=== PATIENT | female | born 1980 | race Caucasian/White ===

== ENCOUNTER 2016-12-21 14:22 | Emergency (ER) | payer OTHER ==
[2016-12-21 14:47] VITALS: BP 109/65
--- NOTE | 2016-12-21 16:49 | UC ---
Thai Yanez Janilya, scribed for Adenike Agarwal DO on 12/21/16 at 1457 . Skin Complaint HPI - HPI Summary HPI Summary: Patient is a 36 y/o female who came in to [facility] presenting w/ a gradual onset of constant infection area on L foot and ankle since 12/19/16. Severity is 8/10. Pt states she got a tattoo on her L ankle on Thursday. She noticed immediate swelling, which is abnormal for pt. Pt has had tattoos before, and has not had these Sx before. Elevation, sleeping, and ice alleviate the swelling. Pt states it is difficult and painful to stand or walk. Yesterday, pt states she also noticed erythema in the area, which seems to be spreading. She says the rash is going up her leg. Pt denies CP, SOB, abd pain, chills, fever. Pt has baseline GOMEZ and nausea before getting the tattoo. PMHx D&C - 1 miscarriage. pt is on an ocp. no fhx of blood clots. - History of Current Complaint Chief Complaint: UCSkin Time Seen by Provider: 12/21/16 14:41 Stated Complaint: SKIN COMPLAINT Hx Obtained From: Patient Hx Last Menstrual Period: 11/09/16 Onset/Duration: Gradual Onset, Lasting Days, Still Present Skin Exposure Onset/Duration: Days Ago Timing: Constant Onset Severity: Moderate Current Severity: Moderate Pain Intensity: 8 Pain Scale Used: 0-10 Numeric Location: Discrete, Other - left lower leg and foot Character: Swelling, Redness, Painful Aggravating: Nothing Alleviating: Nothing, Other - elevation, sleeping, and ice alleviate swelling Associated Signs & Symptoms: Positive: Tenderness. Negative: Nausea, Vomiting, Fever, Chills, Chest Pain - Allergy/Home Medications Allergies/Adverse Reactions: Allergies Allergy/AdvReac Type Severity Reaction Status Date / Time Adhesive Tape Allergy Severe Swelling Verified 12/21/16 15:53 Cefuroxime [From Ceftin] Allergy Severe Hives Verified 12/21/16 15:53 Hydrocodone Allergy Hives Verified 12/21/16 15:53 Oxycodone Allergy Hives Verified 12/21/16 15:53 Review of Systems Constitutional: Negative Skin: Rash, Other - erythema Eyes: Negative ENT: Negative Respiratory: Negative Cardiovascular: Negative Gastrointestinal: Other - nausea before the tattoo Genitourinary: Negative Motor: Negative Neurovascular: Negative Musculoskeletal: Calf Tenderness, Edema - L ankle and foot Neurological: Headache - baseline Psychological: Negative All Other Systems Reviewed And Are Negative: Yes PMH/Surg Hx/FS Hx/Imm Hx Previously Healthy: Yes Endocrine History Of: Denies: Diabetes, Thyroid Disease Cardiovascular History Of: Denies: Cardiac Disorders, Hypertension, Pacemaker/ICD Respiratory History Of: Denies: COPD, Asthma GI/ History Of: Denies: Ulcer, Renal Disease Neurological History Of: Reports: Migraine - last week had last one - Surgical History Surgical History: Yes Surgery Procedure, Year, and Place: D&C AFTER MISCARRIAGE-2004 [facility] [place],. RT SHOULDER ROTATOR CUFF REPAIR 01/2014 - Family History Known Family History: Positive: Cardiac Disease - [place] - grandfather Negative: Hypertension, Diabetes, Other - cancer - Social History Lives: With Family Alcohol Use: Occasionally Alcohol Amount: 1-2 GLASSES WINE PER WEEK Substance Use Type: None Smoking Status (MU): Never Smoked Tobacco - Immunization History Most Recent Influenza Vaccination: 5ft5in Most Recent Tetanus Shot: 180lb Physical Exam Triage Information Reviewed: Yes Appearance: Well-Appearing, No Pain Distress, Well-Nourished Vital Signs: Initial Vital Signs Temp 98.2 F 12/21/16 14:37 Resp 18 12/21/16 14:37 BP 109/65 12/21/16 14:37 Pulse Ox 98 12/21/16 14:37 Vital Signs Reviewed: Yes Eyes: Positive: Conjunctiva Clear. Negative: Discharge ENT: Positive: Hearing grossly normal. Negative: Muffled/hoarse voice Neck exam: Normal Neck: Positive: Supple Respiratory: Positive: Lungs clear, Normal breath sounds, No respiratory distress, No accessory muscle use Cardiovascular: Positive: RRR, No Murmur Musculoskeletal Exam: Normal Musculoskeletal: Positive: ROM Limited @ - d/t pain, Edema @ - asymmetrical swelling of L lower leg, Other: - positive Homans sign Neurological: Positive: Alert, Muscle Tone Normal Psychological Exam: Normal Psychological: Positive: Age Appropriate Behavior Skin Exam: Other - circumferential erythematous rash to the mid-calf and over the top of the foot Course/Dx - Differential Diagnoses - Skin Complaint Differential Diagnoses: Cellulitis, Other - blood clot, septic joint - Diagnoses Provider Diagnoses: r/o dvt - Physician Notification/Consults Discussed Patient Care With: Dr. Maher ([facility] physician) at 1511: agrees to examine pt upon arrival. Discharge - Discharge Plan Condition: Stable Disposition: TRANS HIGHER LVL OF CARE FAC Discharge Disposition Comment: [facility] for ultrasound of the L leg Referrals: Sangeeta Casey MD [Primary Care Provider] - The documentation as recorded by the Thai mai Janilya accurately reflects the service I personally performed and the decisions made by , Adenike Agarwal DO.
== END 2016-12-21 15:22 | disposition short-term general hospital (02) ==
LOC: UCEAST 14:22
DX: L53.9 Erythematous condition, unspecified (principal); M25.572 Pain in left ankle and joints of left foot; R60.0 Localized edema; Z88.1 Allergy status to other antibiotic agents; Z88.5 Allergy status to narcotic agent; Z91.048 Other nonmedicinal substance allergy status; G43.909 Migraine, unspecified, not intractable, without status migrainosus
CPT/HCPCS: 99212; G0463

== ENCOUNTER → 2016-12-21 15:39 | Emergency (ER) | payer OTHER ==
[~2016-12-21 15:39] MED LIST: Clindamycin 600 MG IVPREMIX(* 600 MG/50 ML SDV IV ONE; Clindamycin CAP* 150 MG PO ONE; Ibuprofen TAB* 600 MG PO ONE; NS 0.9% 1000 ML* 1,000 ML IV ONE
[2016-12-21 17:02] LABS: Hematocrit 43 % (35-47); Hemoglobin 14.3 g/dl (12.0-16.0); Mean Corpuscular HGB Conc 34 g/dl (31-36); Mean Corpuscular Hemoglobin 31 pg (27-31); Mean Corpuscular Volume 91 fL (80-97); Mean Platelet Volume 7 um3 (7.4-10.4); Red Cell Distribution Width 13 % (10.5-15); White Blood Count 8.5 10^3/ul (3.5-10.8)
[2016-12-21 17:17] LABS: Albumin 4.3 g/dL (3.2-5.2); BUN/Creatinine Ratio 12.6 (8-20); C Reactive Protein 5.21 mg/L (< 5.00); Calcium 9.2 mg/dL (8.6-10.3); EGFR African American 95.3 (>60); EGFR Non-African American 74.1 (>60); Globulin 2.9 g/dL (2-4); Potassium 3.9 mmol/L (3.5-5.0); Total Bilirubin 0.4 mg/dL (0.2-1.0); Total Protein 7.2 g/dL (6.4-8.9)
[2016-12-21 18:28] VITALS: BP 101/45
--- NOTE | 2016-12-21 18:48 | ED ---
I, Oh,Soohyun, scribed for Yanick Maher MD on 12/21/16 at 1620 . Skin Complaint - HPI Summary HPI Summary: This 36 y/o female presents to ED from Urgent Care for erythema and edema at dorsum of LLE foot since yesterday AM. Pt just got a tattoo done on left foot 2 days ago. Swelling and erythema was noted at dorsum and appeared to have spread toward ankle. Negative itching, chills or swelling around groin. Positive subjective fever at the affected skin area on LUE foot. A+D cream was applied without much relief. Ice didn't alleviate redness or swelling. Ambulation makes the pain worse. Pt is nonsmoker and nondrinker. Pt has had other tattoos before , but states that this is the first time she has had this kind of skin reaction. Plan of care involving bloodwork and abx treatment is discussed with patient. Pt is agreeable. - History of Current Complaint Chief Complaint: EDRashSkinAbscess Time Seen by Provider: 12/21/16 16:06 Stated Complaint: RASH, PAIN LEFT ANKLE Hx Obtained From: Patient, Medical Records Hx Last Menstrual Period: 11/09/16 Onset/Duration: Started Days Ago, Traumatic, Still Present Timing: Constant Pain Intensity: 8 Pain Scale Used: 0-10 Numeric Skin Location: Foot - LLE foot Aggravating Symptom(s): Other: - ambulation Alleviating Symptom(s): Nothing Associated Signs & Symptoms: Fever - Allergy/Home Medications Allergies/Adverse Reactions: Allergies Allergy/AdvReac Type Severity Reaction Status Date / Time Adhesive Tape Allergy Severe Swelling Verified 12/21/16 15:53 Cefuroxime [From Ceftin] Allergy Severe Hives Verified 12/21/16 15:53 Hydrocodone Allergy Hives Verified 12/21/16 15:53 Oxycodone Allergy Hives Verified 12/21/16 15:53 PMH/Surg Hx/FS Hx/Imm Hx Endocrine/Hematology History: Denies: Hx Diabetes, Hx Thyroid Disease Cardiovascular History: Denies: Hx Hypertension, Hx Pacemaker/ICD, Other Cardiovascular Problems/ Disorders Respiratory History: Denies: Hx Asthma, Hx Chronic Obstructive Pulmonary Disease (COPD), Other Respiratory Problems/Disorders GI History: Denies: Hx Ulcer, Other GI Disorders History: Denies: Hx Dialysis, Hx Renal Disease, Other Problems/Disorders Musculoskeletal History: Reports: Hx Orthopedic Injury - right shoulder, Other Musculoskeletal History Sensory History: Denies: Hx Contacts or Glasses, Hx Hearing Aid Opthamlomology History: Denies: Hx Contacts or Glasses Neurological History: Reports: Hx Migraine - last week had last one Psychiatric History: Denies: Hx Panic Disorder - Surgical History Surgery Procedure, Year, and Place: D&C AFTER MISCARRIAGE-2004 [facility] [place],. RT SHOULDER ROTATOR CUFF REPAIR 01/2014 Hx Anesthesia Reactions: Yes - SLOW TO WAKE UP Infectious Disease History: No Infectious Disease History: Denies: Hx Clostridium Difficile, Hx Hepatitis, Hx Human Immunodeficiency Virus (HIV), Hx of Known/Suspected MRSA, History Other Infectious Disease, Traveled Outside the [place] in Last 30 Days - Family History Known Family History: Negative: Cardiac Disease, Hypertension, Diabetes, Other - cancer - Social History Alcohol Use: Occasionally Alcohol Amount: 1-2 GLASSES WINE PER WEEK Substance Use Type: Reports: None Smoking Status (MU): Never Smoked Tobacco Review of Systems Positive: Fever Positive: Edema - dorsum of LLE foot Positive: Rash - dorsum of LLE foot All Other Systems Reviewed And Are Negative: Yes Physical Exam - Summary Physical Exam Summary: The patient is well-nourished in no acute distress and in no acute pain. The skin at LLE foot dorsum is noted with edema and erythema that is circumferential and goes up to mid calf. Mild petechiae. Negative sign of abscess HEENT: The head is normocephalic and atraumatic. The pupils are equal and reactive. The conjunctivae are clear and without drainage. Nares are patent and without drainage. Mouth reveals moist mucous membranes and the throat is without erythema and exudate. The external ears are intact. The ear canals are patent and without drainage. The tympanic membranes are intact. Neck is supple with full range of motion and non-tender. There are no carotid bruits. There is no neck vein distension. Respiratory: Chest is non-tender. Lungs are clear to auscultation and breath sounds are symmetrical and equal. Cardiovascular: Hear is regular rate and rhythm. There is no murmur or rub auscultated. There is no peripheral edema and pulses are symmetrical and equal. Abdomen: The abdomen is soft and non-tender. There are normal bowel sounds heard in all four quadrants and there is no organomegaly palpated. Musculoskeletal: There is no back pain noted. Extremities are non-tender with full range of motion. There is good capillary refill. There is no peripheral edema or calf tenderness elicited. NEGATIVE ENEIDA'S SIGN. Neurological: Patient is alert and oriented to person, place and time. The patient has symmetrical motor strength in all four extremities. Cranial nerves are grossly intact. Deep tendon reflexes are symmetrical and equal in all four extremities. Psychiatric: The patient has an appropriate affect and does not exhibit any anxiety or depression. Vital Signs On Initial Exam: Initial Vitals Temp Pulse Resp BP Pulse Ox 97.7 F 77 16 141/60 100 12/21/16 15:56 12/21/16 15:56 12/21/16 15:56 12/21/16 15:56 12/21/16 15:56 Diagnostics - Vital Signs Vital Signs Temp Pulse Resp BP Pulse Ox 12/21/16 15:56 97.7 F 77 16 141/60 100 - Laboratory Lab Results: Lab Results 12/21/16 12/21/16 12/21/16 Range/Units 16:50 16:50 16:50 WBC 8.5 (3.5-10.8) 10^3/ul RBC 4.70 (4.0-5.4) 10^6/ul Hgb 14.3 (12.0-16.0) g/dl Hct 43 (35-47) % MCV 91 (80-97) fL MCH 31 (27-31) pg MCHC 34 (31-36) g/dl RDW 13 (10.5-15) % Plt Count 263 (150-450) 10^3/ul MPV 7 L (7.4-10.4) um3 Neut % (Auto) 65.9 (38-83) % Lymph % (Auto) 24.7 L (25-47) % Young % (Auto) 7.0 (1-9) % Eos % (Auto) 1.6 (0-6) % Baso % (Auto) 0.8 (0-2) % Absolute Neuts (auto) 5.6 (1.5-7.7) 10^3/ul Absolute Lymphs (auto) 2.1 (1.0-4.8) 10^3/ul Absolute Monos (auto) 0.6 (0-0.8) 10^3/ul Absolute Eos (auto) 0.1 (0-0.6) 10^3/ul Absolute Basos (auto) 0.1 (0-0.2) 10^3/ul Absolute Nucleated RBC 0 10^3/ul Nucleated RBC % 0 INR (Anticoag Therapy) 0.94 (0.89-1.11) APTT 29.2 (26.0-36.3) seconds Sodium 136 (133-145) mmol/L Potassium 3.9 (3.5-5.0) mmol/L Chloride 101 (101-111) mmol/L Carbon Dioxide 30 (22-32) mmol/L Anion Gap 5 (2-11) mmol/L BUN 11 (6-24) mg/dL Creatinine 0.87 (0.51-0.95) mg/dL Est GFR ( Amer) 95.3 (>60) Est GFR (Non-Af Amer) 74.1 (>60) BUN/Creatinine Ratio 12.6 (8-20) Glucose 84 (70-100) mg/dL Lactic Acid (0.5-2.0) mmol/L Calcium 9.2 (8.6-10.3) mg/dL Total Bilirubin 0.40 (0.2-1.0) mg/dL AST 18 (13-39) U/L ALT 21 (7-52) U/L Alkaline Phosphatase 77 (34-104) U/L C-Reactive Protein 5.21 H (< 5.00) mg/L Total Protein 7.2 (6.4-8.9) g/dL Albumin 4.3 (3.2-5.2) g/dL Globulin 2.9 (2-4) g/dL Albumin/Globulin Ratio 1.5 (1-3) // Range/Units 16:50 WBC (3.5-10.8) 10^3/ul RBC (4.0-5.4) 10^6/ul Hgb (12.0-16.0) g/dl Hct (35-47) % MCV (80-97) fL MCH (27-31) pg MCHC (31-36) g/dl RDW (10.5-15) % Plt Count (150-450) 10^3/ul MPV (7.4-10.4) um3 Neut % (Auto) (38-83) % Lymph % (Auto) (25-47) % Young % (Auto) (1-9) % Eos % (Auto) (0-6) % Baso % (Auto) (0-2) % Absolute Neuts (auto) (1.5-7.7) 10^3/ul Absolute Lymphs (auto) (1.0-4.8) 10^3/ul Absolute Monos (auto) (0-0.8) 10^3/ul Absolute Eos (auto) (0-0.6) 10^3/ul Absolute Basos (auto) (0-0.2) 10^3/ul Absolute Nucleated RBC 10^3/ul Nucleated RBC % INR (Anticoag Therapy) (0.89-1.11) APTT (26.0-36.3) seconds Sodium (133-145) mmol/L Potassium (3.5-5.0) mmol/L Chloride (101-111) mmol/L Carbon Dioxide (22-32) mmol/L Anion Gap (2-11) mmol/L BUN (6-24) mg/dL Creatinine (0.51-0.95) mg/dL Est GFR ( Amer) (>60) Est GFR (Non-Af Amer) (>60) BUN/Creatinine Ratio (8-20) Glucose (70-100) mg/dL Lactic Acid 0.9 (0.5-2.0) mmol/L Calcium (8.6-10.3) mg/dL Total Bilirubin (0.2-1.0) mg/dL AST (13-39) U/L ALT (7-52) U/L Alkaline Phosphatase (34-104) U/L C-Reactive Protein (< 5.00) mg/L Total Protein (6.4-8.9) g/dL Albumin (3.2-5.2) g/dL Globulin (2-4) g/dL Albumin/Globulin Ratio (1-3) Result Diagrams: 12/21/16 16:50 12/21/16 16:50 Lab Statement: Any lab studies that have been ordered have been reviewed, and results considered in the medical decision making process. Re-Evaluation - Re-Evaluation First Eval Re-Evaluation Time: 17:29 Comment: Pt is updated with bloodwork results. Plan of care is discussed. Course/Dx - Course Assessment/Plan: This 36 y/o female presents to ED for acute erythema and edema at dorsum of LLE foot since yesterday AM. Pt has recently had tattoo done at that exact spot 2 days ago. Pain is worse with ambulation. Upon examination, erythema is noted circumferential and up to mid calf LLE. Mild patechiae was observed, so INR was ordered to rule out any etiologies involving blood clots. No sign of abscess noted. Blood work is wnl except for CRP of 5.21. INR is wnl, and blood clot is not clinically concerned. - Differential Diagnoses - Skin Complaint Differential Diagnoses: Abscess, Cellulitis - Diagnoses Provider Diagnoses: Cellulitis of left foot Discharge - Discharge Plan Condition: Stable Disposition: HOME Prescriptions: Clindamycin Cap(NF) [Cleocin 300 mg Cap(NF)] 300 mg PO Q6H #28 cap Patient Education Materials: Cellulitis (ED), Clindamycin (By mouth) Referrals: Sangeeta Casey MD [Primary Care Provider] - 2 Days Additional Instructions: Please take 2-3 tablets of tylenols a day as needed. Apply warm soak and keep your foot elevated. The documentation as recorded by the Karlos mai Soohyun accurately reflects the service I personally performed and the decisions made by me, Yanick Maher MD.
== END | disposition home or self-care (01) ==
LOC: ED 15:39
DX: L03.116 Cellulitis of left lower limb (principal); Z88.5 Allergy status to narcotic agent
CPT/HCPCS: 36415; 80053; 83605; 85025; 85610; 85730; 86140; 96360; 96374; 99283; A9270-GY

== ENCOUNTER 2016-12-30 14:40 | Emergency (ER) | payer OTHER ==
[2016-12-30 14:48] VITALS: BP 126/75
--- NOTE | 2016-12-30 15:20 | UC ---
Skin Complaint HPI - HPI Summary HPI Summary: tattoo left foot and ankle, has pain and swelling to foot and lower leg, she has completed one course of clindamycin---here just ordered a second course and she broken out in red patchy rash. In general her foot is still swollen but per the patient significantly better than when treatment began, n/m/c pulses intact distally - History of Current Complaint Chief Complaint: UCRash Time Seen by Provider: 12/30/16 14:59 Stated Complaint: RASH Hx Obtained From: Patient Hx Last Menstrual Period: 12/29/16 ?: No Onset/Duration: Gradual Onset, Lasting Days, Still Present - but is getting better Skin Exposure Onset/Duration: Days Ago Timing: Constant Onset Severity: Severe Current Severity: Mild Pain Intensity: 3 Pain Scale Used: 0-10 Numeric Location: Discrete - left foot and ankle Character: Swelling, Redness Aggravating: Nothing Alleviating: Nothing Associated Signs & Symptoms: Positive: Negative Related History: Other: - new tattoo - Allergy/Home Medications Allergies/Adverse Reactions: Allergies Allergy/AdvReac Type Severity Reaction Status Date / Time Adhesive Tape Allergy Severe Swelling Verified 12/21/16 15:53 Cefuroxime [From Ceftin] Allergy Severe Hives Verified 12/21/16 15:53 Hydrocodone Allergy Hives Verified 12/21/16 15:53 Oxycodone Allergy Hives Verified 12/21/16 15:53 Review of Systems Constitutional: Negative Skin: Other - erythema left lower leg with swelling around tattoo Eyes: Negative ENT: Negative Respiratory: Negative Cardiovascular: Negative Gastrointestinal: Negative Genitourinary: Negative Motor: Negative Neurovascular: Negative Musculoskeletal: Negative, Edema - left lower leg Neurological: Negative Psychological: Negative All Other Systems Reviewed And Are Negative: Yes PMH/Surg Hx/FS Hx/Imm Hx Previously Healthy: No Endocrine History Of: Denies: Diabetes, Thyroid Disease Cardiovascular History Of: Denies: Cardiac Disorders, Hypertension, Pacemaker/ICD Respiratory History Of: Denies: COPD, Asthma GI/ History Of: Denies: Ulcer, Renal Disease Neurological History Of: Reports: Migraine - last week had last one - Surgical History Surgical History: Yes Surgery Procedure, Year, and Place: D&C AFTER [place]ISCARRIAGE-[place] [facility] [place],. RT SHOULDER ROTATOR CUFF REPAIR 01/2014 - Family History Known Family History: Positive: Cardiac Disease - [place] - grandfather Negative: Hypertension, Diabetes, Other - cancer - Social History Occupation: Employed Full-time Lives: With Family Alcohol Use: Weekly Alcohol Amount: 1-2 GLASSES WINE PER WEEK Substance Use Type: None Smoking Status (MU): Never Smoked Tobacco - Immunization History Most Recent Influenza Vaccination: 5ft5in Most Recent Tetanus Shot: 180lb Physical Exam Triage Information Reviewed: Yes Appearance: Well-Appearing, No Pain Distress, Well-Nourished Vital Signs: Initial Vital Signs Temp 98.0 F 12/30/16 14:43 Pulse 74 12/30/16 14:43 Resp 18 12/30/16 14:43 BP 126/75 12/30/16 14:43 Pulse Ox 99 12/30/16 14:43 Vital Signs Reviewed: Yes Eye Exam: Normal Eyes: Positive: Conjunctiva Clear ENT Exam: Normal ENT: Positive: Normal ENT inspection, Hearing grossly normal, Pharynx normal, TMs normal. Negative: Nasal congestion, Nasal drainage, Tonsillar swelling, Tonsillar exudate, Trismus, Muffled/hoarse voice Dental Exam: Normal Neck exam: Normal Neck: Positive: Supple, Nontender, No Lymphadenopathy Respiratory Exam: Normal Respiratory: Positive: Chest non-tender, Lungs clear, Normal breath sounds, No respiratory distress, No accessory muscle use Cardiovascular Exam: Normal Cardiovascular: Positive: RRR, No Murmur, Pulses Normal, Brisk Capillary Refill Musculoskeletal Exam: Other Musculoskeletal: Positive: Strength Intact, ROM Intact, Edema @ - left lower leg (improving) Neurological Exam: Normal Neurological: Positive: Alert, Muscle Tone Normal Psychological Exam: Normal Course/Dx - Course Course Of Treatment: elevation, warm compress, change antibiodic to Bactrim, used A&D ointment only on tattoos follow with pcp - Differential Diagnoses - Skin Complaint Differential Diagnoses: Cellulitis, Contact Dermatitis, Impetigo, Local Allergic Reaction - Diagnoses Provider Diagnoses: Left lower extremity cellulitis (improving) Discharge - Discharge Plan Condition: Stable Disposition: HOME Prescriptions: Sulfamethox/Trimethoprim DS* [Bactrim DS 800/160 TAB*] 1 tab PO BID #20 tab predniSONE TAB* [Deltasone TAB*] 10 mg PO DAILY #20 tab Patient Education Materials: Cellulitis (ED), Antibiotic Medication Allergy (ED ) Referrals: Sangeeta Casey MD [Primary Care Provider] - If Needed
== END 2016-12-30 15:30 | disposition home or self-care (01) ==
LOC: UCEAST 14:40
DX: L03.116 Cellulitis of left lower limb (principal)
CPT/HCPCS: 99212; G0463

== ENCOUNTER 2017-07-11 17:49 | Emergency (ER) | payer OTHER ==
[2017-07-11 18:04] VITALS: BP 129/77
[2017-07-11] MEDS ORDERED: Albuterol HFA INHALER* 8 gm MDI INH ONE (18:16)
[2017-07-11] MEDS ORDERED: Benzonatate CAP* 100 MG PO ONE (18:18)
--- NOTE | 2017-07-11 18:19 | UC ---
Respiratory Complaint HPI - HPI Summary HPI Summary: Cough for 7 days and mother dx with pneumonia, no fevers, no body aches or SOB - History of Current Complaint Chief Complaint: UCRespiratory Stated Complaint: COUGH Time Seen by Provider: 07/11/17 18:09 Hx Obtained From: Patient Hx Last Menstrual Period: 05/2017 ?: No Onset/Duration: Gradual Onset, Lasting Days - 7, Still Present Timing: Constant Severity Initially: Mild Severity Currently: Mild Character: Cough: Nonproductive Aggravating Factors: Nothing Alleviating Factors: Nothing Associated Signs And Symptoms: Positive: URI - Allergies/Home Medications Allergies/Adverse Reactions: Allergies Allergy/AdvReac Type Severity Reaction Status Date / Time Adhesive Tape Allergy Severe Swelling Verified 07/11/17 18:00 Cefuroxime [From Ceftin] Allergy Severe Hives Verified 07/11/17 18:00 Clindamycin Allergy Rash Verified 07/11/17 18:00 Hydrocodone Allergy Hives Verified 07/11/17 18:00 Oxycodone Allergy Hives Verified 07/11/17 18:00 Sulfamethoxazole Allergy Rash Verified 07/11/17 18:00 w/Trimethoprim [From Bactrim] PMH/Surg Hx/FS Hx/Imm Hx Previously Healthy: No Cardiovascular History: Hypertension GI/ History: Gastroesophageal Reflux - Surgical History Surgical History: Yes Surgery Procedure, Year, and Place: D&C AFTER MISCARRIAGE-2004 [facility] [place],. RT SHOULDER ROTATOR CUFF REPAIR 01/2014 - Family History Known Family History: Positive: Cardiac Disease - [place] - grandfather Negative: Hypertension, Diabetes, Other - cancer - Social History Occupation: Employed Part-time Lives: With Family Alcohol Use: Occasionally Alcohol Amount: 2 drinks per week Substance Use Type: None Smoking Status (MU): Never Smoked Tobacco - Immunization History Most Recent Influenza Vaccination: 2016 Most Recent Tetanus Shot: unknown Review of Systems Constitutional: Negative Skin: Negative Eyes: Negative ENT: Negative Respiratory: Cough Cardiovascular: Negative Gastrointestinal: Negative Genitourinary: Negative Motor: Negative Neurovascular: Negative Musculoskeletal: Negative Neurological: Negative Psychological: Negative Is Patient Immunocompromised?: No All Other Systems Reviewed And Are Negative: Yes Physical Exam Triage Information Reviewed: Yes Appearance: Well-Appearing, No Pain Distress, Well-Nourished Vital Signs: Initial Vital Signs Temp 97.5 F 07/11/17 17:53 Pulse 83 07/11/17 17:53 Resp 16 07/11/17 17:53 BP 129/77 07/11/17 17:53 Pulse Ox 99 07/11/17 17:53 Vital Signs Reviewed: Yes Eye Exam: Normal Eyes: Positive: Conjunctiva Clear ENT Exam: Normal ENT: Positive: Normal ENT inspection, Hearing grossly normal, Pharynx normal, TMs normal, Uvula midline. Negative: Nasal congestion, Nasal drainage, Tonsillar swelling, Tonsillar exudate, Trismus, Muffled voice, Hoarse voice, Dental tenderness, Sinus tenderness Dental Exam: Normal Neck exam: Normal Neck: Positive: Supple, Nontender, No Lymphadenopathy Respiratory Exam: Normal Respiratory: Positive: Chest non-tender, Lungs clear, Normal breath sounds, No respiratory distress, No accessory muscle use Cardiovascular Exam: Normal Cardiovascular: Positive: RRR, No Murmur, Pulses Normal, Brisk Capillary Refill Musculoskeletal Exam: Normal Musculoskeletal: Positive: Strength Intact, ROM Intact, No Edema Neurological Exam: Normal Neurological: Positive: Alert, Muscle Tone Normal Psychological Exam: Normal Skin Exam: Normal UC Diagnostic Evaluation - Laboratory O2 Sat by Pulse Oximetry: 99 Respiratory Course/Dx - Course Course Of Treatment: Albuterol, tessalon, increase fluids if fails to resolve in 3-5 days start antibiodics follow with pcp - Differential Dx/Diagnosis Provider Diagnoses: Acute cough Discharge - Discharge Plan Condition: Stable Disposition: HOME Prescriptions: Azithromycin TAB* [Zithromax TAB (Z-JOSE JUAN) 250 mg #6 tabs] 2 tab PO .TODAY, THEN 1 DAILY #1 jose juan Benzonatate CAP* [Tessalon 100 MG CAP*] 100 mg PO TID PRN #30 cap PRN Reason: cough Patient Education Materials: Bronchospasm (ED), Acute Cough (ED), Safe Use of Cough and Cold Medicines (ED) Referrals: Sangeeta Casey MD [Primary Care Provider] - If Needed
== END 2017-07-11 18:38 | disposition home or self-care (01) ==
LOC: UCEAST 17:49
DX: R05 Cough (principal); Z72.89 Other problems related to lifestyle
CPT/HCPCS: 99212; A9270-GY; G0463

== ENCOUNTER 2017-10-21 19:46 | Emergency (ER) | payer OTHER ==
[2017-10-21 20:13] VITALS: BP 109/76
--- NOTE | 2017-10-21 20:26 | UC ---
Throat Pain/Nasal Bandar HPI - HPI Summary HPI Summary: Pt presents with a sore throat and headache since yesterday. She tells me that she has two children who have been diagnosed with strep and she thinks she may have it. Has not taken anything OTC for her symptoms. Denies fever, chills, cough, SOB, chest pain, or dizziness. - History of Current Complaint Chief Complaint: UCRespiratory Stated Complaint: HEADACHE, SORE THROAT Time Seen by Provider: 10/21/17 20:26 Hx Obtained From: Patient Hx Last Menstrual Period: 10/11/17 Onset/Duration: Gradual Onset Severity: Mild Pain Intensity: 4 Pain Scale Used: 0-10 Numeric - Allergies/Home Medications Allergies/Adverse Reactions: Allergies Allergy/AdvReac Type Severity Reaction Status Date / Time cefuroxime [From Ceftin] Allergy Severe Hives Verified 10/21/17 20:14 clindamycin Allergy Severe Rash Verified 10/21/17 20:14 hydrocodone Allergy Severe Hives Verified 10/21/17 20:14 oxycodone Allergy Severe Hives Verified 10/21/17 20:14 Sulfa (Sulfonamide Allergy Severe Hives Verified 10/21/17 20:15 Antibiotics) adhesive tape Allergy SWELLING, Verified 10/21/17 20:14 HIVES PMH/Surg Hx/FS Hx/Imm Hx Previously Healthy: Yes Cardiovascular History: Hypertension GI/ History: Gastroesophageal Reflux - Surgical History Surgical History: Yes Surgery Procedure, Year, and Place: D&C AFTER MISCARRIAGE-2004 [facility] [place],. RT SHOULDER ROTATOR CUFF REPAIR 01/2014 - Family History Known Family History: Positive: Cardiac Disease - [place] - grandfather Negative: Hypertension, Diabetes, Other - cancer - Social History Occupation: Employed Full-time Lives: With Family Alcohol Use: Occasionally Alcohol Amount: 1 drink per week Substance Use Type: None Smoking Status (MU): Never Smoked Tobacco - Immunization History Most Recent Influenza Vaccination: 2016 Most Recent Tetanus Shot: unknown Review of Systems Constitutional: Negative Skin: Negative Eyes: Negative ENT: Sore Throat Respiratory: Negative Cardiovascular: Negative Musculoskeletal: Negative Neurological: Headache Psychological: Negative All Other Systems Reviewed And Are Negative: Yes Physical Exam - Summary Physical Exam Summary: GENERAL: NAD. WDWN. No pain distress. SKIN: No rashes, sores, ulcers, masses, lesions. HEENT: Head: AT/NC Eyes: Conjunctiva clear without inflammation or discharge. Ears: Hearing grossly normal. TMs intact, no bulging, erythema, or edema. Nose: Nasal mucosa pink and moist. NTTP maxillary and frontal sinus. Throat: Posterior oropharynx without erythema. 2+ tonsillar enlargement. No exudates. Uvula midline. No hoarse voice or muffled voice. NECK: Supple. Nontender. No lymphadenopathy. CHEST: CTAB. No r/r/w. No accessory muscle use. Breathing comfortably and in no distress. CV: RRR. Without m/r/g. Pulses intact. Brisk cap refill. NEURO: Alert. CN II-XII grossly intact. PSYCH: Age appropriate behavior. Triage Information Reviewed: Yes Vital Signs: Initial Vital Signs Temp 98.1 F 10/21/17 20:10 Pulse 83 10/21/17 20:10 Resp 16 10/21/17 20:10 BP 109/76 10/21/17 20:10 Pulse Ox 100 10/21/17 20:10 Throat Pain/Nasal Course/Dx - Course Course Of Treatment: POC strep negative. Suspect viral pharyngitis. Advised rest , fluids, and ibuprofen for fevers/discomfort. - Differential Dx/Diagnosis Provider Diagnoses: Pharyngitis Discharge - Discharge Plan Condition: Stable Disposition: HOME Patient Education Materials: Pharyngitis (ED) Referrals: Sangeeta Casey MD [Primary Care Provider] - Additional Instructions: If you develop a fever, shortness of breath, chest pain, new or worsening symptoms - please call your PCP or go to the ED. 1) May take tylenol or ibuprofen for any fevers or discomfort.
== END 2017-10-21 20:53 | disposition home or self-care (01) ==
LOC: UCEAST 19:46
DX: J02.9 Acute pharyngitis, unspecified (principal); Z20.89 Contact with and (suspected) exposure to other communicable diseases; Z88.1 Allergy status to other antibiotic agents; Z88.8 Allergy status to other drugs, medicaments and biological substances; Z91.048 Other nonmedicinal substance allergy status
CPT/HCPCS: 87651; 99211; G0463

== ENCOUNTER 2018-06-04 17:03 | Emergency (ER) | payer OTHER ==
[2018-06-04 17:22] VITALS: BP 124/78
--- NOTE | 2018-06-04 17:56 | RAD ---
HISTORY: pain, lateral right knee pain COMPARISONS: None VIEWS: 4 , Frontal, lateral, axial, and oblique views of the right knee FINDINGS: BONE DENSITY: Normal. BONES: There is no displaced fracture. JOINTS: There is no arthropathy. There is no suprapatellar joint effusion or lipohemarthrosis. ALIGNMENT: There is no dislocation. SOFT TISSUES: Unremarkable. OTHER FINDINGS: None. IMPRESSION: NO ACUTE OSSEOUS INJURY. IF SYMPTOMS PERSIST, RECOMMEND REPEAT IMAGING.
--- NOTE | 2018-06-04 18:05 | UC ---
Lower Extremity/Ankle HPI - HPI Summary HPI Summary: This patient is a 38 year old F presenting to [facility] with a chief complaint of R knee pain since earlier today at 1140. 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 She fell on her R knee and since then have been having pain. The patient rates the pain 8 /10 in severity. Symptoms aggravated by nothing. Symptoms alleviated by nothing. Patient denies neck, head, and hip trauma, difficulty ambulating, and LOC. - History of Current Complaint Chief Complaint: UCLowerExtremity Stated Complaint: KNEE INJURY Time Seen by Provider: 06/04/18 17:26 Hx Obtained From: Patient Hx Last Menstrual Period: [id number] Onset/Duration: Sudden Onset, Lasting Hours, Still Present Severity Initially: Severe Severity Currently: Severe Pain Intensity: 8 Pain Scale Used: 0-10 Numeric Aggravating Factor(s): Nothing Alleviating Factor(s): Nothing Able to Bear Weight: Yes - able to ambulate - Allergies/Home Medications Allergies/Adverse Reactions: Allergies Allergy/AdvReac Type Severity Reaction Status Date / Time cefuroxime [From Ceftin] Allergy Severe Hives Verified 06/04/18 17:23 clindamycin Allergy Severe Rash Verified 06/04/18 17:23 hydrocodone Allergy Severe Hives Verified 06/04/18 17:23 oxycodone Allergy Severe Hives Verified 06/04/18 17:23 Sulfa (Sulfonamide Allergy Severe Hives Verified 06/04/18 17:23 Antibiotics) adhesive tape Allergy SWELLING, Verified 06/04/18 17:23 HIVES PMH/Surg Hx/FS Hx/Imm Hx Endocrine History: Other Other Endocrine History: No DM Cardiovascular History: Other Other Cardiovascular History: No HTN - Surgical History Surgical History: Yes Surgery Procedure, Year, and Place: D&C AFTER MISCARRIAGE-2004 [facility] [place],. RT SHOULDER ROTATOR CUFF REPAIR 01/2014 - Family History Known Family History: Positive: Cardiac Disease - [place] - grandfather Negative: Hypertension, Diabetes, Other - cancer - Social History Alcohol Use: Weekly Alcohol Amount: 2 drinks per week Substance Use Type: None Smoking Status (MU): Never Smoked Tobacco - Immunization History Most Recent Influenza Vaccination: 2016 Most Recent Tetanus Shot: unknown Review of Systems Musculoskeletal: Other: - R knee pain; denies head trauma, neck trauma, and hip trauma Neurological: Other - denies LOC All Other Systems Reviewed And Are Negative: Yes Physical Exam - Summary Physical Exam Summary: VITAL SIGNS: Reviewed. GENERAL: Patient is a well-developed and nourished FEMALE who is lying comfortable in the stretcher. Patient is not in any acute respiratory distress. HEAD AND FACE: Normocephalic EYES: PERRLA, EOMI x 2. EARS: Hearing grossly intact. MOUTH: Oropharynx within normal limits. NECK: Supple, trachea is midline, no adenopathy, no JVD, no carotid bruit. CHEST: Symmetric, no tenderness at palpation LUNGS: Clear to auscultation bilaterally. No wheezing or crackles. CVS: Regular rate and rhythm, S1 and S2 present, no murmurs or gallops appreciated. ABDOMEN: Soft, non-tender. Bowel sounds are normal. No abdominal abnormal pulsations. EXTREMITIES: Full ROM in all major joints, no edema, no cyanosis or clubbing. Slight bruising of the anterior aspect of the R patella. NEURO: Alert and oriented x 3. No acute neurological deficits. Speech is normal and follows commands. SKIN: Dry and warm. Slight bruising of the anterior aspect of the R patella. Triage Information Reviewed: Yes Vital Signs: Initial Vital Signs Temp 98.0 F 06/04/18 17:14 Pulse 82 06/04/18 17:14 Resp 16 06/04/18 17:14 BP 124/78 06/04/18 17:14 Pulse Ox 100 06/04/18 17:14 Vital Signs Reviewed: Yes Diagnostics - Radiology R knee XR Radiology Interpretation Completed By: Radiologist - NO ACUTE OSSEOUS INJURY. IF SYMPTOMS PERSIST, RECOMMEND REPEAT IMAGING. Dr. Petersen has reviewed this radiology report. Lower Extremity Course/Dx - Course Course Of Treatment: Patient is a 58-year-old female who presents to the urgent care with chief complaint of having right knee pain. The patient reports that she's had an accidental fall and since then she is having pain. The patient is able to ambulate and bear weight. Physical exam doesn't show any deformity, hematomas, has a slight bruising in the anterior aspect of the patella, she has full range of motion of the knee, and did draw test is negative. X-ray of the knee negative for acute fracture dislocation. I discussed the findings and test results with the patient the need to follow-up with her primary care physician. The patient understands and agrees. Patient is hemodynamically stable alert and oriented 3. I carefully notifications to the patient that she is to take only Tylenol for the pain. She understands and agrees. - Differential Dx/Diagnosis Provider Diagnoses: knee pain Discharge - Sign-Out/Discharge Documenting (check all that apply): Patient Departure All imaging exams completed and their final reports reviewed: Yes - Discharge Plan Condition: Stable Disposition: HOME Patient Education Materials: Knee Pain (ED) Referrals: Sangeeta Casey MD [Primary Care Provider] - Additional Instructions: Apply some ice or warm compresses as needed. Take Acetaminophen for pain Increase your fluid intake Return to the or go to the emergency department if symptoms worsen Follow-up with primary care physician in next 2-3 days - Billing Disposition and Condition Condition: STABLE Disposition: Home - Attestation Statements Document Initiated by Sherlynibe: Yes Documenting Scribe: Richard Kinsey Provider For Whom Scribe is Documenting (Include Credential): Kem Petersen MD Scribe Attestation: IRichard, scribed for Kem Petersen MD on 06/04/18 at 1820. Scribe Documentation Reviewed: Yes Provider Attestation: The documentation as recorded by the Richard mai accurately reflects the service I personally performed and the decisions made by me, Kem Petersen MD
== END 2018-06-04 18:10 | disposition home or self-care (01) ==
LOC: UCEAST 17:03
DX: M25.561 Pain in right knee (principal); Z88.1 Allergy status to other antibiotic agents; Z88.5 Allergy status to narcotic agent; Z88.2 Allergy status to sulfonamides; Z91.048 Other nonmedicinal substance allergy status
CPT/HCPCS: 99211; G0463

== ENCOUNTER 2018-10-07 16:08 | Emergency (ER) | payer OTHER ==
--- OUTSIDE RECORDS SUMMARY | 2018-10-07 17:03 | XMS REPORT | Continuity of Care Document ---
:1980 External Reference #:[id number] Author Name Kayla Casanova Care Team Providers Name Role Phone Sangeeta Casey MD Primary Care Physician Unavailable Payers Date Identification Numbers Payment Provider Subscriber PayID: [id number] Controverted Tan Tomas Onset: 2013 Policy Number: [id number] Tan Tomas Group Number: [id number] [address] PayID: [place] [address] Advance Directives Description No Information Available Problems Date Description Provider Status Onset: 01/31/2015 Hemiplegic migraine Tomasa Bloom NP Active Onset: 02/05/2015 Brachial neuritis Efrem Ureña M.D. Active Onset: 03/15/2015 Lesion of ulnar nerve Efrem Ureña M.D. Active Onset: 08/30/2015 Plain X-ray skull abnormal Adebayo iJ MD Active Onset: 05/28/2015 Late effect of sprain AND/OR strain Efrem Ureña M.D. Active without tendon injury Family History Date Family Member(s) Observation Comments General Diabetes General Heart Disease General Cancer Social History Type Date Description Comments Sex Unknown Lives With Spouse ETOH Use Drinks 2 Alcoholic Beverages Per Week Tobacco Use Start: Unknown Patient has never smoked Smoking Status Reviewed: 10/07/18 Patient has never smoked Exercise Type/Frequency Does not exercise Allergies, Adverse Reactions, Alerts Date Description Reaction Status Severity Comments 09/13/2013 Tape Active 09/13/2013 Ceftin Active 03/21/2014 Oxycodone Active 03/21/2014 Hydrocodone Active Medications Medication Date Status Form Strength Qnty SIG Indications Ordering Provider Fioricet 10/07 Active Capsules 50-300-40 10cap 1 by G43.009 mg s mouth Garrison, twice a MD day as needed headache max 2 days/wk Verapamil HCL ER 04/15 Active Caps ER 180mg 30cap 1 by G43.401 24HR s mouth one Garrison, time a MD day Gabapentin Active Capsules 300mg 90cap 1 by s mouth Garrison, three MD times a day Omeprazole Active Capsules [address] mouth every day Gabapentin 11/03 Hx Capsules 100mg 60cap take 1 s capsule Garrison, - by mouth MD 11/25 in the evening. Verapamil HCL 02/21 Hx Tablets 80mg 90tab 1 by G43.401 s mouth Garrison, - twice a MD 04/15 day for week then 1 in am and 2 at night Cymbalta 05/[address] 30mg 90cap 1 by S46.911S Part s mouth Niranjan, - every day M.D. 09/25 Methylprednisolone 09/11 Hx Tablets 4mg 1pack take as Efrem () directed Niranjan, - M.D. 01/30 Neurontin 08/07 Hx Capsules 100mg 60cap 1 by s toño Ureña, - qhs. december M.D. 01/30 increase by 1-2 tab after 3 days. [place] 02/05 Hx Tablets 5-325mg 40tab 1-2 by s mouth Niranjan, - every 4 M.D. 02/13 hours needed pain Zofran Odt 02/03 Hx Tablets 4mg 40tab every 6 Dispers s hours as Niranjan, - needed M.D. 02/13 nausea No Active 01/17 Hx Unknown Medications /2013 - 01/17 No Active 09/13 Hx Unknown Medications /2013 - 01/16 Cyclobenzaprine HCL 06/21 Hx Tablets 5mg 15tab 1 po tid ritesh Ureña, - muscle M.D. 09/13 spasm Tramadol 00/ Hx Unknown / - 09/13 Prednisone / Hx Unknown / - 09/13 Ibuprofen Hx Unknown / - 09/13 Aleve Hx Unknown / - 01/30 Vitamin D Hx Tablets 25066Fwpy 1 tab by Unknown (Cholecalciferol) mouth - weekly 02/14 Rizatriptan Benzoate Hx Tablets 10mg 1 by Unknown mouth - twice a 02/04 day needed headache max 2 days a week Omeprazole Hx Capsules 20mg [address] mouth - every day 02/04 Meloxicam Hx Tablets 7.5mg 1 po bid - 11/25 Medications Administered in Office Medication Date Status Form Strength Qnty SIG Indications Ordering Provider Depomedrol Administered Injection Efrem 80MG 014 Keon Ureña Immunizations Description No Information Available Vital Signs Date Vital Result Comment 10/07/2018 3:46pm Height 65 inches 5'5" Weight 180.00 lb Heart Rate 80 /min BP Systolic 122 mmHg BP Diastolic 88 mmHg BMI (Body Mass Index) 30.0 kg/m2 05/21/2017 10:31am Height 65 inches 5'5" Weight 196.25 lb Heart Rate 76 /min BP Systolic Sitting 120 mmHg BP Diastolic Sitting 82 mmHg BMI (Body Mass Index) 32.7 kg/m2 12/25/2016 9:17am Height 65 inches 5'5" Weight 194.38 lb Heart Rate 78 /min BP Systolic Sitting 120 mmHg BP Diastolic Sitting 86 mmHg BMI (Body Mass Index) 32.3 kg/m2 11/03/2016 10:23am Height 65 inches 5'5" Weight 195.00 lb Heart Rate 80 /min BP Systolic Sitting 118 mmHg BP Diastolic Sitting 78 mmHg BMI (Body Mass Index) 32.4 kg/m2 04/15/2016 2:48pm Height 65 inches 5'5" Weight 180.00 lb Heart Rate 76 /min BP Systolic Sitting 122 mmHg BP Diastolic Sitting 78 mmHg BMI (Body Mass Index) 30.0 kg/m2 02/22/2016 10:05am Height 65 inches 5'5" Weight 180.00 lb Heart Rate 70 /min BP Systolic Sitting 90 mmHg BP Diastolic Sitting 60 mmHg Respiratory Rate 16 /min BMI (Body Mass Index) 30.0 kg/m2 10/09/2015 9:25am Height 65 inches 5'5" Weight 180.00 lb Pain Level 6 BMI (Body Mass Index) 30.0 kg/m2 09/26/2015 9:15am Height 65 inches 5'5" Weight 180.00 lb Pain Level 6 BMI (Body Mass Index) 30.0 kg/m2 08/30/2015 9:35am Height 65 inches 5'5" Weight 180.00 lb Heart Rate 68 /min BP Systolic Sitting 106 mmHg BP Diastolic Sitting 84 mmHg Respiratory Rate 14 /min BMI (Body Mass Index) 30.0 kg/m2 07/30/2015 1:50pm Height 65 inches 5'5" Weight 186.00 lb Pain Level 3 BMI (Body Mass Index) 30.9 kg/m2 05/28/2015 12:41pm Height 65 inches 5'5" Weight 186.00 lb Pain Level 5 BMI (Body Mass Index) 30.9 kg/m2 03/29/2015 3:32pm Heart Rate 88 /min BP Systolic Sitting 132 mmHg BP Diastolic Sitting 86 mmHg Respiratory Rate 18 /min 03/15/2015 9:36am Height 65 inches 5'5" Weight 186.00 lb Pain Level 6 BMI (Body Mass Index) 30.9 kg/m2 03/01/2015 2:06pm Height 65 inches 5'5" Heart Rate 60 /min BP Systolic Sitting 118 mmHg BP Diastolic Sitting 72 mmHg Respiratory Rate 16 /min 02/05/2015 9:41am Height 65 inches 5'5" Weight 186.00 lb Pain Level 7 BMI (Body Mass Index) 30.9 kg/m2 01/31/2015 10:26am Height 65 inches 5'5" Weight 186.00 lb Heart Rate 60 /min BP Systolic Sitting 110 mmHg BP Diastolic Sitting 70 mmHg Respiratory Rate 16 /min BMI (Body Mass Index) 30.9 kg/m2 12/11/2014 9:54am Height 65 inches 5'5" Body Temperature 96.7 F Pain Level 0 09/11/2014 11:53am Height 65 inches 5'5" Weight 150.00 lb Pain Level 8 BMI (Body Mass Index) 25.0 kg/m2 08/31/2014 11:59am Height 65 inches 5'5" Weight 150.00 lb Pain Level 3 BMI (Body Mass Index) 25.0 kg/m2 08/07/2014 8:45am Height 65 inches 5'5" Weight 150.00 lb Pain Level 5 BMI (Body Mass Index) 25.0 kg/m2 06/13/2014 10:33am Height 65 inches 5'5" Heart Rate 89 /min BP Systolic 120 mmHg BP Diastolic 77 mmHg 05/02/2014 10:25am Height 65 inches 5'5" Heart Rate 86 /min BP Systolic 118 mmHg BP Diastolic 79 mmHg Pain Level 7 03/21/2014 1:14pm Height 65 inches 5'5" Weight 150.00 lb Heart Rate 74 /min BP Systolic 126 mmHg BP Diastolic 76 mmHg BMI (Body Mass Index) 25.0 kg/m2 02/14/2014 11:01am Height 65 inches 5'5" Heart Rate 85 /min BP Systolic 128 mmHg BP Diastolic 84 mmHg 01/17/2014 4:09pm Height 65 inches 5'5" Weight 150.00 lb Heart Rate 80 /min BP Systolic 116 mmHg BP Diastolic 72 mmHg BMI (Body Mass Index) 25.0 kg/m2 11/22/2013 1:34pm Height 65 inches 5'5" Weight 155.00 lb Heart Rate 78 /min BMI (Body Mass Index) 25.8 kg/m2 10/18/2013 1:07pm Height 65 inches 5'5" Weight 155.00 lb Heart Rate 77 /min BP Systolic 121 mmHg BP Diastolic 80 mmHg BMI (Body Mass Index) 25.8 kg/m2 10/04/2013 11:20am Heart Rate 83 /min BP Systolic 110 mmHg BP Diastolic 67 mmHg 06/21/2013 1:54pm Height 65 inches 5'5" Weight 150.00 lb Heart Rate 67 /min BP Systolic 118 mmHg BP Diastolic 78 mmHg BMI (Body Mass Index) 25.0 kg/m2 Results Test Date Facility Test Result H/L Range Note Cardiolipin Igg/Igm 02/05/2015 Phospholipid Ab IgM, < 4.0 MPL N 1 S Phospholipid Ab IgG < 4.0 GPL N 2 Surgical 02/03/2014 [facility] S RUN DATE: [address] <[place] [address] NOTE> [phone] Laboratory test 02/03/2014 [facility] Urine Negative N Negative [address] [place] [address] [phone] 1 REFERENCE VALUE <10.0 (Negative) 2 REFERENCE VALUE <10.0 (Negative) Test Performed by: [facility] - [address] [address] Parking Enforcer: Nemesio Cerda II, M.D., Ph.D. 3 RUN DATE: 02/06/14 [facility] LAB LIVE PAGE 1 RUN TIME: [address] [place] [address] Specimen Inquiry Name: PHANTAN : [address]: Efrem Ureña MD Acct: [id number] Unit: [id number] AGE: 33 Location: OR Re02/03/14 SEX: F Status: REG [facility] [place] SPEC: [id number] JESSICA: 02/03/14- [facility] DR: Efrem Ureña MD REQ: [id number] RECD: 02/03/14114 STATUS: SOUT _ ORDERED: LEVEL III FINAL DIAGNOSIS Shoulder, right, shavings: Fragments of fibrocartilage with myxoid degeneration and synovial tissue with fibrosis. PRE-OPERATIVE DIAGNOSIS Right acromioclavicular joint arthritis. GROSS DESCRIPTION The specimen is received in formalin labeled Tan Tomas, Shavings Right Shoulder, and consists of a 2.5 x 2.3 x 0.3 cm. aggregate of yellow and white tissue fragments. Special Delivery Clerk sections, one cassette. Signed (signature on file) Sigifredo De La Cruz MD 1604 END OF REPORT * ML=Testing performed at Main Lab DEPARTMENT OF PATHOLOGY, [address] [place] [address] Sigifredo De La Cruz M.D. Director [facility] # [id number] 4 If is still suspected, please repeat test after 48 to 72 hours. This test detects intact HCG only and is indicated for the early detection of . Procedures Date Code Description Status 02/03/2014 02315 Arthroscopy,Shoulder Decompression Of Subacromial Space Completed W/Acromio 02/03/2014 73729 Arthroscopy,Shoulder Decompression Of Subacromial Space Completed W/Acromio 02/03/2014 65971 Arthroscopy,Shoulder,Distal Claviculectomy Incl Dist Completed Articular SR 02/03/2014 83540 Arthroscopy,Shoulder,Distal Claviculectomy Incl Dist Completed Articular SR 02/03/2014 07814 Arthroscopy Shoulder Debridement Limited Completed 10/04/2013 Inject/Drain Joint/Bursa Intermediate W/O US Completed 09/13/2013 Injection Single Tendon Origin/Insertion Completed Encounters Type Date Location Provider Dx Diagnosis Office Visit 05/21/2017 [facility] Adebayo Ji, G43.401 Hemiplegic 10:00a Clinic migraine, not intractable, w status migrainosus Office Visit 12/25/2016 [facility] Adebayo Ji, R90.82 White matter 9:15a Clinic disease, unspecified G43.401 Hemiplegic migraine, not intractable, w status migrainosus 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 Office 11/03/2016 [facility] Adebayo G43.401 Hemiplegic Visit 10:15a Clinic MD Garrison migraine, not intractable, w status migrainosus Z79.899 Other fdc (current) drug therapy Office 04/15/2016 [facility] Adebayo G43.401 Hemiplegic Visit 2:30p Clinic MD Garrison migraine, not intractable, w status migrainosus Office 02/22/2016 [facility] Adebayo G43.401 Hemiplegic Visit 9:45a Clinic MD Garrison migraine, not intractable, w status migrainosus Office 10/09/2015 [facility] Kelly Mann M54.12 Radiculopathy, Visit 9:15a Of DoraMRubio [place] cervical region M54.12 Radiculopathy, cervical region Office Visit 09/26/2015 Orthopedic Kelly Mann, S46.911S Strain unsp 9:00a Services Of MD bran/fasc/tend at [facility] shldr/up arm, right arm, sqla M54.12 Radiculopathy, cervical region S46.911D Strain unsp musc/fasc/tend at shldr/up arm, right arm, subs Office Visit 08/30/2015 [place] Adebayo Ji, G43.401 Hemiplegic 9:30a Neurologic migraine, not Services Of District Branch Manager intractable, w status migrainosus R90.82 White matter disease, unspecified Office Visit 07/30/2015 Orthopedic Kelly Mann, S46.911S Strain unsp 1:30p Services Of MD bran/fasc/tend at [facility] shldr/up arm, right arm, sqla M54.12 Radiculopathy, cervical region S46.911D Strain unsp musc/fasc/tend at shldr/up arm, right arm, subs Office Visit 05/28/2015 Orthopedic Efrem Ureña S46.911S Strain unsp 11:45a Services Of [place] bran/fasc/tend at [facility] shldr/up arm, right arm, sqla Office Visit 03/29/2015 Vidya Randolph 346.32 Hemiplegic Migraine 2:00p Neurologic Gnadt, CHANNEL PROGRAM MANAGER W/Out Mention Of Services Of [facility] Intractable Migraine 346.30 Hemiplegic Migraine, W/Out Mention Of Intractable Migraine Office Visit 03/15/2015 9:30a Orthopedic Services Efrem Ureña, 354.2 Lesion Ulnar Of [facility] M.DChidi Nerve 354.2 Lesion Ulnar Nerve Office Visit 03/01/2015 2:00p [place] Neurologic Tomasa Lusiva, 346.32 Hemiplegic Services Of [facility] CHANNEL PROGRAM MANAGER Migraine W/Out Mention Of Intractable Migraine 346.30 Hemiplegic Migraine, W/Out Mention Of Intractable Migraine Office Visit 02/05/2015 9:30a Orthopedic Efrem Ureña, 723.4 Brachial Neuritis Services Of M.Jane [facility] Radiculitis NOS [facility] Office Visit 01/31/2015 10:30a [place] [facility] Tomasa Wolf, 346.32 Hemiplegic Services Of [facility] CHANNEL PROGRAM MANAGER Migraine W/Out Mention Of Intractable Migraine 346.30 Hemiplegic Migraine, W/Out Mention Of Intractable Migraine Office Visit 12/11/2014 9:30a Orthopedic Efrem Ureña, 719.41 Pain Joint Shoulder Services [facility] Office Visit 09/11/2014 11:45a Nidia Ureña 719.41 Pain Joint Shoulder Services [facility] Office Visit 08/07/2014 8:15a Nidia Ureña, 840.5 Sprains & Strains Services Of M.DChidi Subscapularis [facility] (Muscle) 719.41 Pain Joint Shoulder Region Plan of Treatment 10/07/2018 - Adebayo Ji MDG43.009 Migraine without aura, not intractable, without status migraNew Medication:Fioricet 50-300-40 mg - 1 by mouth twice a day as needed headache max 2 days/wkComments:Migraines much improved. Offered fiorecet as needed for the rare but bad headaches and she will take.Will continue verapamil and neurontin for now but if still doing well will consider weaning one after next visit. Two months before next visit she is going to go to gabapentin 300mg in am and 600mg in pm.
[2018-10-07 17:04] VITALS: BP 138/62
--- NOTE | 2018-10-07 17:05 | UC ---
FLU HPI - HPI Summary HPI Summary: 38 yo female presents with cough. She tells me that on 10/03 she was diagnosed with the flu. Since that time she has had a dry cough that is worse at bedtime. She is feeling better than on 10/03 and her fatigue, body aches, and fever have resolved - but the cough is persisting. Has been taking dayquill/nyquill with no relief. She has had no more fevers. Denies SOB, chest pain, n/v. - History of Current Complaint Chief Complaint: UCRespiratory Stated Complaint: COUGH, AND EAR ACHE Time Seen by Provider: 10/07/18 17:05 Hx Obtained From: Patient Hx Last Menstrual Period: [id number] Severity Currently: Moderate Severity Initially: Moderate Pain Intensity: 6 Pain Scale Used: 0-10 Numeric - Allergy/Home Medications Allergies/Adverse Reactions: Allergies Allergy/AdvReac Type Severity Reaction Status Date / Time cefuroxime [From Ceftin] Allergy Severe Hives Verified 10/07/18 17:05 clindamycin Allergy Severe Rash Verified 10/07/18 17:05 hydrocodone Allergy Severe Hives Verified 10/07/18 17:05 oxycodone Allergy Severe Hives Verified 10/07/18 17:05 Sulfa (Sulfonamide Allergy Severe Hives Verified 10/07/18 17:05 Antibiotics) adhesive tape Allergy SWELLING, Verified 10/07/18 17:05 HIVES PMH/Surg Hx/FS Hx/Imm Hx Cardiovascular History: Hypertension GI/ History: Gastroesophageal Reflux - Surgical History Surgical History: Yes Surgery Procedure, Year, and Place: D&C AFTER MISCARRIAGE-2004 [facility] [place] RT SHOULDER ROTATOR CUFF REPAIR 01/2014 - Family History Known Family History: Positive: Cardiac Disease - [place] - grandfather Negative: Hypertension, Diabetes, Other - cancer - Social History Occupation: Employed Full-time Lives: With Family Alcohol Use: Weekly Alcohol Amount: 2 drinks per week Substance Use Type: None Smoking Status (MU): Never Smoked Tobacco - Immunization History Most Recent Influenza Vaccination: 2016 Most Recent Tetanus Shot: unknown Review of Systems All Other Systems Reviewed And Are Negative: Yes Constitutional: Positive: Negative Skin: Positive: Negative Eyes: Positive: Negative ENT: Positive: Sore Throat, Ear Ache Respiratory: Positive: Cough Cardiovascular: Positive: Negative Gastrointestinal: Positive: Negative Neurovascular: Positive: Negative Neurological: Positive: Negative Psychological: Positive: Negative Physical Exam - Summary Physical Exam Summary: GENERAL: NAD. WDWN. No pain distress. SKIN: No rashes, sores, lesions, or open wounds. HEENT: Head: AT/NC Eyes: EOM intact. Conjunctiva clear without inflammation or discharge. Ears: Hearing grossly normal. TMs intact, no bulging, erythema, or edema. Nose: Nasal mucosa pink and moist. NTTP maxillary and frontal sinus. Throat: Posterior oropharynx without exudates, erythema, or tonsillar enlargement. Uvula midline. NECK: Supple. Nontender. No lymphadenopathy. CHEST: CTAB. No r/r/w. No accessory muscle use. Breathing comfortably and in no distress. CV: RRR. Without m/r/g. Pulses intact. Cap refill <2seconds NEURO: Alert. PSYCH: Age appropriate behavior. Triage Information Reviewed: Yes Vital Signs: Initial Vital Signs Temp 97.8 F 10/07/18 17:00 Pulse 74 10/07/18 17:00 Resp 18 10/07/18 17:00 BP 138/62 10/07/18 17:00 Pulse Ox 100 10/07/18 17:00 Vital Signs Reviewed: Yes Flu Course/Dx - Course Course Of Treatment: Suspect viral cough. Rx for tessalon and cough syrup at bedtime. F/u if symptoms do not improve. Pt has allergy to narcotics, but states she has had a cough syrup with codeine in the past without issue. - Differential Dx/Diagnosis Provider Diagnosis: Viral URI with cough Discharge - Sign-Out/Discharge Documenting (check all that apply): Patient Departure All imaging exams completed and their final reports reviewed: No Studies - Discharge Plan Condition: Stable Disposition: HOME Prescriptions: Benzonatate CAP* [Tessalon 100 MG CAP*] 100 mg PO TID PRN #21 cap PRN Reason: Cough Codeine Phosphate/Guaifenesin [Guaifen-Codeine 100-10 mg/5 ml] 5 ml PO BEDTIME # 35 ml MDD 5 Patient Education Materials: Influenza (DC), Acute Cough (ED) Referrals: Sangeeta Casey MD [Primary Care Provider] - Additional Instructions: If you develop a fever, shortness of breath, chest pain, new or worsening symptoms - please call your PCP or go to the ED. - Billing Disposition and Condition Condition: STABLE Disposition: Home - Attestation Statements Provider Attestation: I was available for consult. This patient was seen by the [facility]. The patient was not presented to, seen by, or examined by me. -Joes
== END 2018-10-07 17:26 | disposition home or self-care (01) ==
LOC: UCEAST 16:08
DX: J06.9 Acute upper respiratory infection, unspecified (principal); R05 Cough; I10 Essential (primary) hypertension; Z88.2 Allergy status to sulfonamides; Z88.1 Allergy status to other antibiotic agents; Z88.8 Allergy status to other drugs, medicaments and biological substances; Z91.09 Other allergy status, other than to drugs and biological substances
CPT/HCPCS: 99212; G0463

== ENCOUNTER 2018-10-15 21:22 | Emergency (ER) | payer OTHER ==
[2018-10-15 21:29] VITALS: BP 138/63
[2018-10-15] MEDS ORDERED: Neomyc/Polym/HC 1% OTIC SUSP* **OTIC LEFT EAR ONE (21:41)
--- NOTE | 2018-10-15 21:41 | UC ---
Ear Complaint HPI - HPI Summary HPI Summary: 38-year-old woman comes in with a chief complaint of left ear pain. Patient's had upper respiratory tract and flu symptoms for about 15 days. She's been having bilateral ear pain over this time. Left ear pain is worse on the right. Pains worse when she pushes on the external ear. Also feels some pain and swelling going into the left side of her throat. No difficulty swallowing no recent fevers. - History of Current Complaint Chief Complaint: UCEar Stated Complaint: EAR PAIN Time Seen by Provider: 10/15/18 21:26 Hx Last Menstrual Period: 2 DAYS AGO Pain Intensity: 10 - Allergies/Home Medications Allergies/Adverse Reactions: Allergies Allergy/AdvReac Type Severity Reaction Status Date / Time cefuroxime [From Ceftin] Allergy Severe Hives Verified 10/15/18 21:29 clindamycin Allergy Severe Rash Verified 10/15/18 21:29 hydrocodone Allergy Severe Hives Verified 10/15/18 21:29 oxycodone Allergy Severe Hives Verified 10/15/18 21:29 Sulfa (Sulfonamide Allergy Severe Hives Verified 10/15/18 21:29 Antibiotics) adhesive tape Allergy SWELLING, Verified 10/15/18 21:29 HIVES Home Medications: Home Medications Acetaminophen [Tylenol Extra Strength] 1,000 mg PO PRN 10/15/18 [History] PMH/Surg Hx/FS Hx/Imm Hx Previously Healthy: Yes - Surgical History Surgical History: Yes Surgery Procedure, Year, and Place: D&C AFTER MISCARRIAGE-2004 [facility] – [place],. RT SHOULDER ROTATOR CUFF REPAIR 01/2014 - Family History Known Family History: Positive: Cardiac Disease - [place] - grandfather Negative: Hypertension, Diabetes, Other - cancer - Social History Alcohol Use: Occasionally Alcohol Amount: 2 drinks per week Substance Use Type: None Smoking Status (MU): Never Smoked Tobacco - Immunization History Most Recent Influenza Vaccination: 2016 Most Recent Tetanus Shot: unknown Review of Systems All Other Systems Reviewed And Are Negative: Yes Constitutional: Positive: Negative Skin: Positive: Negative Eyes: Positive: Negative ENT: Positive: Sore Throat, Ear Ache, Nasal Discharge, Sinus Congestion Respiratory: Positive: Negative Cardiovascular: Positive: Negative Gastrointestinal: Positive: Negative Motor: Positive: Negative Neurovascular: Positive: Negative Musculoskeletal: Positive: Negative Neurological: Positive: Negative Psychological: Positive: Negative Is Patient Immunocompromised?: No Physical Exam Triage Information Reviewed: Yes Appearance: Well-Appearing, No Pain Distress, Well-Nourished Vital Signs: Initial Vital Signs Temp 97.7 F 10/15/18 21:26 Pulse 65 10/15/18 21:26 Resp 16 10/15/18 21:26 BP 138/63 10/15/18 21:26 Pulse Ox 100 10/15/18 21:26 Vital Signs Reviewed: Yes Eye Exam: Normal Eyes: Positive: Conjunctiva Clear ENT: Positive: Pharynx normal, TM red - LEFT, Other - Tender to palpation of the left tragus and also on otoscope exam. Ear canal is swollen with some debris in it. Neck exam: Normal Neck: Positive: Supple Respiratory: Positive: Lungs clear, Normal breath sounds Cardiovascular: Positive: RRR Musculoskeletal Exam: Normal Musculoskeletal: Positive: Strength Intact, ROM Intact Neurological Exam: Normal Neurological: Positive: Alert, Muscle Tone Normal Psychological Exam: Normal Psychological: Positive: Age Appropriate Behavior Skin Exam: Normal Ear Complaint Course/Dx - Differential Dx/Diagnosis Provider Diagnosis: Left otitis media, Left otitis externa Discharge - Sign-Out/Discharge Documenting (check all that apply): Patient Departure All imaging exams completed and their final reports reviewed: No Studies - Discharge Plan Condition: Stable Disposition: HOME Prescriptions: DOXYcycline CAP(*) [DOXYcycline 100MG CAP(*)] 100 mg PO BID #18 cap Patient Education Materials: Otitis Externa (ED), Ear Infection (ED) Referrals: Sangeeta Casey MD [Primary Care Provider] - Additional Instructions: FOLLOW UP WITH YOUR DOCTOR IF NOT COMPLETELY IMPROVED. GET RECHECKED FOR ANY WORSENING OF YOUR CONDITION OR QUESTIONS OR CONCERNS. - Billing Disposition and Condition Condition: STABLE Disposition: Home
[2018-10-15] MEDS ORDERED: DOXYcycline CAP(*) 100 MG PO ONE ×2 (21:42→21:43)
== END 2018-10-15 21:55 | disposition home or self-care (01) ==
LOC: UCEAST 21:22
DX: H66.92 Otitis media, unspecified, left ear (principal); H60.92 Unspecified otitis externa, left ear; Z91.09 Other allergy status, other than to drugs and biological substances; Z88.2 Allergy status to sulfonamides; Z88.5 Allergy status to narcotic agent; Z88.1 Allergy status to other antibiotic agents; Z88.8 Allergy status to other drugs, medicaments and biological substances
CPT/HCPCS: 99213; A9270-GY; G0463

== ENCOUNTER 2019-02-05 17:13 | Emergency (ER) | payer BC, OTHER ==
[2019-02-05 17:40] VITALS: BP 130/75
--- NOTE | 2019-02-05 18:57 | UC ---
Ear Complaint HPI - HPI Summary HPI Summary: 4 DAYS OF RIGHT EAR PAIN AND SLIGHTLY MUTED HEARING. NO DRAINAGE FROM THE EAR. NO URI SYMPTOMS. NO FEVER. - History of Current Complaint Chief Complaint: UCEar Stated Complaint: EAR ACHE Time Seen by Provider: 02/05/19 17:21 Hx Obtained From: Patient Hx Last Menstrual Period: 01/17/2019 Onset/Duration: Gradual Onset, Lasting Days, Still Present Severity Initially: Mild Severity Currently: Mild Pain Intensity: 1 Pain Scale Used: 0-10 Numeric Aggravating Factors: Nothing Alleviating Factors: Nothing Associated Signs/Symptoms: Positive: Hearing Loss. Negative: Discharge, URI Symptoms - Allergies/Home Medications Allergies/Adverse Reactions: Allergies Allergy/AdvReac Type Severity Reaction Status Date / Time cefuroxime [From Ceftin] Allergy Severe Hives Verified 02/05/19 17:38 clindamycin Allergy Severe Rash Verified 02/05/19 17:38 hydrocodone Allergy Severe Hives Verified 02/05/19 17:38 oxycodone Allergy Severe Hives Verified 02/05/19 17:38 Sulfa (Sulfonamide Allergy Severe Hives Verified 02/05/19 17:38 Antibiotics) adhesive tape Allergy SWELLING, Verified 02/05/19 17:38 HIVES PMH/Surg Hx/FS Hx/Imm Hx Previously Healthy: Yes - Surgical History Surgical History: Yes Surgery Procedure, Year, and Place: D&C AFTER MISCARRIAGE-2004 [facility] – [place],. RT SHOULDER ROTATOR CUFF REPAIR 01/2014 - Family History Known Family History: Positive: Cardiac Disease - [place] - grandfather Negative: Hypertension, Diabetes, Other - cancer - Social History Alcohol Use: Weekly Alcohol Amount: 2 drinks per week Substance Use Type: None Smoking Status (MU): Never Smoked Tobacco - Immunization History Most Recent Influenza Vaccination: 2016 Most Recent Tetanus Shot: unknown Review of Systems All Other Systems Reviewed And Are Negative: Yes Constitutional: Positive: Negative Eyes: Positive: Negative ENT: Positive: Ear Ache Respiratory: Positive: Negative Cardiovascular: Positive: Negative Gastrointestinal: Positive: Negative Physical Exam Triage Information Reviewed: Yes Appearance: Well-Appearing, No Pain Distress, Well-Nourished Vital Signs: Initial Vital Signs Temp 98.1 F 02/05/19 17:39 Pulse 76 02/05/19 17:39 Resp 18 02/05/19 17:39 BP 130/75 02/05/19 17:39 Pulse Ox 98 02/05/19 17:39 Vital Signs Reviewed: Yes Eyes: Positive: Conjunctiva Clear ENT: Positive: Hearing grossly normal, Pharynx normal, TMs normal Neck: Positive: Supple, Nontender, No Lymphadenopathy Respiratory Exam: Normal Cardiovascular Exam: Normal Abdomen Description: Positive: Soft Musculoskeletal: Positive: No Edema Neurological: Positive: Alert Psychological: Positive: Age Appropriate Behavior Skin: Negative: Rashes Ear Complaint Course/Dx - Course Course Of Treatment: NO SIGN OF EAR INFECTION ON EXAM TODAY. NO EXCESSIVE EARWAX OR FOREIGN BODY. PATIENT REPORTS SHE DOES USE Q-TIPS IN HER EARS EVERY SINGLE DAY. ADVISED HER TO TAKE A BREAK FROM THIS SHE MAY BE ABRADING HER EAR CANAL AND CAUSING DISCOMFORT. SHE WILL FOLLOW-UP WITH HER PCP IF SHE IS NOT IMPROVING EXPECTED. - Differential Dx/Diagnosis Provider Diagnosis: Right ear pain Discharge - Sign-Out/Discharge Documenting (check all that apply): Patient Departure All imaging exams completed and their final reports reviewed: No Studies - Discharge Plan Condition: Stable Disposition: HOME Patient Education Materials: Earache (ED) Referrals: Sangeeta Casey MD [Primary Care Provider] - 1 Week Additional Instructions: EXAM NORMAL TODAY. NO EAR INFECTION OR FOREIGN BODY OR WAX BUILDUP. STOP USING QTIPS YOU MAY BE ABRADING THE EAR CANAL. SEEK FOLLOW-UP IF YOUR SYMPTOMS DO NOT IMPROVE OVER THE NEXT WEEK OR SO. EAR PAIN, NON-SPECIFIC There are many causes of ear pain in adults. Pain that's felt in the ear can actually be coming from somewhere nearby. This is called "referred pain." Problems in the teeth, throat, or jaw joint (TMJ) often cause ear pain. Sometimes the physical exam or medical history suggests a treatable cause. If not, we may wait for the pain to go away. New symptoms may offer a clue to the cause of the pain. Report any changes to your care provider. These are some conditions that can cause ear pain, but may not be obvious from physical examination: Eardrum injury Pressure changes (barotrauma) due to swimming or shock waves Mild trauma such as Q-tip injury or finger-picking the outer ear Mild outer ear infection (swimmer's ear) Low-grade or chronic middle ear infection Mastoiditis (infection in the bone behind the ear) TMJ syndrome or arthritis of the jaw Pressure from hard earwax Tooth infection Infected tonsil Sinus infection Nerve disease such as Scott's Palsy Follow your care provider's treatment recommendations. Let the ear rest. Don't insert cotton swabs, dig at the ear with your finger, or force your ears to "pop." If you're not improving after a few days, or if new symptoms arise, see the doctor. Watch for: Decreased hearing Spreading pain or headache Drainage or bleeding from the ear Fever Weakness of the face muscles Other new symptoms - Billing Disposition and Condition Condition: STABLE Disposition: Home
== END 2019-02-05 18:10 | disposition home or self-care (01) ==
LOC: UCEAST 17:13
DX: H92.01 Otalgia, right ear (principal)
CPT/HCPCS: 99211; G0463